=== PATIENT | male | born 1965 | race Caucasian/White ===

== ENCOUNTER 2017-01-28 12:04 | Observation (INO) | payer OTHER ==
[~2017-01-28] VITALS: Ht 182.9 cm; Wt 79.5 kg
--- NOTE | 2017-01-28 12:05 | ED.REPORT ---
HPI-Stroke / CVA Jan 28, 2017 ED Provider: Eliana Kumar MD A healthy 51 year old male presents to the ER via EMS referred from urgent care due to sudden onset, rapidly improving left arm weakness. Last known normal 11: 06 today. He states that he was at work when he became dizzy and almost lost consciousness, and noticed weakness in his left arm. Patient denies headache. He is an everyday smoker, drinker, and THC user, though he denies any illicit drug use. Nursing Notes Stated Complaint: LEFT SIDED WEAKNESS Nursing Notes Reviewed: Yes Allergies: Coded Allergies: No Known Allergies (Unverified , 01/28/17) No Active Prescriptions or Reported Meds General Time Seen by Provider: 12:03 Chief Complaint Weakness Arm left Hx Obtained From: Patient, EMS Arrived By: Ambulance Time last known well 11:06 today Sudden in Onset?: Yes Symptom Duration: Since onset Progression Since Onset: Unchanged Associated with: Denies: Headache Pertinent Negative: Pt denies other symptoms Similar Sx Previous: No Risk Factors )( TPA Administration/Criteria Stroke Thrombolytic Therapy : TPA Considered: Yes TPA Administered Intravenously: No, not indicated (rapidly improving symptoms, to asymptomatic) Relative Exclusion Crit: Rapidly improv stroke sym NIH Stroke Scale Level of Consciousness: Alert and responsive (0) Ask Month & Age: Both questions right (0) Open/Close Eyes/Hand Workforce Services Representative: Performs both tasks (0) Horizontal EO Movements: None (0) Visual Allen: No visual loss (0) Facial Palsy: Normal symmetry (0) Right Arm Motor Drift (10s): No drift 10 sec (0) Left Arm Motor Drift (10s): No drift 10 sec (0) Right Leg Motor Drift (5s): No drift 5 sec (0) Left Leg Motor Drift (5s): No drift 5 sec (0) Limb Ataxia FNF/Heel-Cote: No ataxia (0) Sensation (Arms/Legs/Face): No sensory loss (0) Language Aphasia: No aphasia, normal (0) Dysarthria: No dysarthria, normal (0) Extinction/Inattention: No exctinct/inattent (0) NIHSS Score: 0 Time NIHSS Performed: 12:09 Date NIHSS Performed: Jan 28, 2017 Past Medical History Past Medical History Healthy Past Surgical History Denies Smoking History Current Every Day Smoker Social History Alcohol Use: 1-3 per day Drug Use: THC (daily) Ambulatory Status Independent Review of Systems Constitutional: Denies: Chills, Fever Respiratory: Denies: Non-productive cough, Shortness of breath Cardiovascular: Denies: Chest pain GI: Denies: Nausea, Vomiting Skin: Denies Diaphoresis Neurologic: Reports: Dizziness, Focal weakness (Left Arm), Lightheaded, Denies: Headache, Syncope Complete sys rev & neg: except as marked. Physical Exam Initial evaluation at 12:01 on arrival. Initial Vital Signs Vital Signs (First) Date Time Temp Pulse Resp B/P Pulse Ox O2 Delivery O2 Flow Rate FiO2 01/28/17 12:06 36.6 80 15 131/89 98 Room Air Initial VS: Reviewed Abdomen / GI: Soft, Non-tender, No guarding, No rebound, No distention Extremities: Vascular intact, Neuro intact, No swelling, No tenderness Skin: Warm, Dry, No cyanosis General/Constitutional: Awake, Alert, Well developed, Well nourished Behavior: Positive: Anxious Reserved Head / Eyes: Atraumatic, Normocephalic Neck: Supple, Full range of motion, No swelling, Non-tender, No carotid bruit Respiratory / Chest: Breath sounds NL, Breath sounds = bilat, No respiratory distress, No rales, No rhonchi, No wheezing Cardiovascular: Heart rate NL, Regular rhythm, Heart sounds NL, No murmurs, Peripheral circulation NL Neurologic: Oriented X3, Speech NL, No sensory deficits, CN II - XII intact Mild Left arm weakness. Speech is fluent. Able to transfer from [facility] to [place] bed independently. Interpretation & Diagnostics Lab Results Interpretation Result Diagram: 01/28/17 1205 01/28/17 1205 Test 01/28/17 12:05 01/28/17 12:30 01/28/17 13:38 White Blood Count 10.6th/mm3 (3.8-10.1) Red Blood Count 4.65mil/mm3 (4.40-5.80) Hemoglobin 16.5g/dL (13.8-17.2) Hematocrit 45.3% (41.0-50.0) Mean Corpuscular Volume 97.4fL (81-100) Mean Corpuscular Hemoglobin 35.5pg (27.0-35.0) Mean Corpuscular Hemoglobin Concent 36.4% (32.0-37.0) Red Cell Distribution Width 13.1% (12.3-15.4) Platelet Count 212bil/L (150-400) Neutrophils (%) (Auto) 66.8% (40-74) Lymphocytes (%) (Auto) 22.6% (14-46) Monocytes (%) (Auto) 9.1% (4-12) Eosinophils (%) (Auto) 1.0% (0-5) Basophils (%) (Auto) 0.3% (0-3) Prothrombin Time 10.0sec (8.1-12.5) Prothromb Time International Ratio 0.94ratio Activated Partial Thromboplast Time 27.1sec (22.8-33.0) Sodium Level 138mEq/L (134-144) Potassium Level 4.0mEq/L (3.5-5.2) Chloride Level 101mEq/L (97-108) Carbon Dioxide Level 22mmol/L (18-29) Blood Urea Nitrogen 12mg/dL (6-24) Creatinine 0.80mg/dL (0.76-1.27) Estimat Glomerular Filtration Rate 107mL/min (>59) Glucose Level 107mg/dL (60-99) Calcium Level 9.4mg/dL (8.5-10.1) Total Bilirubin 0.5mg/dL (0.0-1.2) Aspartate Amino Transf (AST/SGOT) 31U/L (0-50) Alanine Aminotransferase (ALT/SGPT) 35U/L (0-44) Alkaline Phosphatase 50U/L (25-150) Total Protein 7.8g/dL (6.4-8.4) Albumin 4.6g/dL (3.4-5.0) Hold Purple Top Tube Received (Received) Hold Blue Top Tube Received (Received) Triglycerides Level 46mg/dL (0-149) Cholesterol Level 154mg/dL (100-199) LDL Cholesterol, Calculated 81.800mg/dL (0-99) VLDL Cholesterol 9.200mg/dL HDL Cholesterol 63mg/dL (>39) Cholesterol/HDL Ratio 2.44 (0.0-4.4) Hold Red Top Tube Received (Received) Hold Benedict Top Tube Received (Received) Urine Color Yellow (YELLOW) Urine Appearance Clear (CLEAR,HAZY) Urine pH 7.0 (5.0-8.0) Urine Specific [place] 1.010 (1.003-1.035) Urine Protein Negativemg/dL (NEG,TRACE) Urine Glucose (UA) Negativemg/dL (NEGATIVE) Urine Ketones Negativemg/dL (NEGATIVE) Urine Occult Blood Negative (NEGATIVE) Urine Nitrite Negative (NEGATIVE) Urine Bilirubin Negative (NEGATIVE) Urine Urobilinogen Normalmg/dL (NORMAL) Urine Leukocyte Esterase Negative (NEGATIVE) Urine RBC 0-2/hpf (0-2) Urine WBC 0-5/hpf (0-5) Urine Epithelial Cells Occasional/hpf (NONE-MOD) Urine Crystals None seen (NONE SEEN) Urine Bacteria None/hpf (NONE-FEW) Urine Hyaline Casts None/lpf (NONE) Urine Granular Casts None seen (NONE SEEN) Urine Waxy Casts None seen (NONE SEEN) Urine Red Blood Cell Casts None seen (NONE SEEN) Urine White Blood Cell Casts None seen (NONE SEEN) Urine Mucus None seen (None Seen) Urine Trichomonas None seen (NONE SEEN) Urine Yeast None (NONE SEEN) Urinalysis Comment None Urine Culture Reflexed Not indicated ECG Interpretation ECG Interpretation: Sinus rhythm, rate 72 LPFB Time: 12:45 Interpreted by: ED physician CT Head Interpretation IMPRESSION: 1. No acute intracranial abnormalities. 2. Mild mucosal thickening in ethmoid sinuses bilaterally. This study fulfills neurological imaging criteria for inclusion or exclusion of acute stroke therapies based on available published neurological guidelines. Dictated by: Sarah Spicer M.D. on 01/28/2017 at 12:14 Approved by: Sarah Spicer M.D. on 01/28/2017 at 12:15 Study: Head CT no contrast Interpretation / Wet Read by: Interpret - Radiologist Re-Eval/Medical Decision Source of Hx: Old records Re-Evaluation/Progress #1: Time of Eval: 12:16 Re-Evaluation/Progress Note: Left arm weakness now resolved. Re-Evaluation/Progress #2: Time of Eval: 14:03 Re-Evaluation/Progress Note: Discussed lab and radiology results, physical examination findings and need for admission. Patient is amenable to the plan. All other questions addressed. Consultation : Referral / Consult Name: Malou Moss MD Consulted With: Hospitalist Call Returned at: 13:38 Loan Funder: Agrees with eval, Agrees with plan, Accepts admit Counseled Regarding: Diagnosis, Lab results, Need for admission Patient Discharge & Departure Impression: Primary Impression: TIA (transient ischemic attack) Disposition: ADMITTED TO HOSPITAL Discharge Condition All VS Reviewed: Yes Condition: Stable Scribe Attestation Portions of this note were transcribed by Jordi Moeller. I, Dr. Kumar, personally performed the history, physical exam and medical decision-making; I reviewed and confirmed the accuracy of the information in the transcribed note. Signed by: Juan Hoyt, 01/28/2017 at 14:03 Eliana Kumar MD Jan 28, 2017 12:05 JORDI MOELLER Jan 28, 2017 12:16
[2017-01-28 12:06] VITALS: BP 131/89; PULSE 80; RESP 15; O2SAT 98
--- NOTE | 2017-01-28 12:17 | DRSVH ---
PROCEDURE: CT BRAIN (TPA) ([id number]) INDICATIONS: weakness TECHNIQUE: Noncontrast 4.5 mm thick angled axial sections acquired from the foramen magnum to the vertex, with c oronal reformats. COMPARISON: None. FINDINGS: Image quality: Excellent. CSF spaces: Basal cisterns are patent. No extra-axial fluid collections. The ventricles are symmet cris in size and shape. Brain: No intracranial bleeds or masses. There is cerebral volume loss for age, with resultant vent ricular and sulcal prominence. There are periventricular and deep white matter chronic small vessel ischemic changes. There is intracranial internal carotid artery atherosclerosis. Skull and face: Calvarium and visualized facial bones appear intact, without suspicious lesions. Sinuses: There is mild mucosal thickening in ethmoid sinuses bilaterally. Mastoids are clear. IMPRESSION: 1. No acute intracranial abnormalities. 2. Mild mucosal thickening in ethmoid sinuses bilaterally. This study fulfills neurological imaging criteria for inclusion or exclusion of acute stroke therapie s based on available published neurological guidelines. Dictated by: Sarah Spicer M.D. on 01/28/2017 at 12:14 Approved by: Sarah Spicer M.D. on 01/28/2017 at 12:15
[2017-01-28 12:40] LABS: BASOPHILS % (AUTO) 0.3 % (0-3); MONOCYTES % (AUTO) 9.1 % (4-12); Mean Corpuscular Hemoglobin 35.5 pg (27.0-35.0); Mean Corpuscular Volume 97.4 fL (81-100); NEUTROPHILS % (AUTO) 66.8 % (40-74); Platelet Count 212 bil/L (150-400)
[2017-01-28 12:46] LABS: INR 0.94 ratio
--- NOTE | 2017-01-28 12:58 | NUR ---
Evaluation completed. Please go to "Notes" then click on "Assessments and Notes" (bottom left corner of screen). Then select appropriate discipline tab on top of screen.
[2017-01-28 13:20] LABS: TROPONIN T < 0.010 ug/L (0.0-0.011)
[2017-01-28 13:52] VITALS: BP 119/85; PULSE 73; RESP 15; O2SAT 98
[2017-01-28] MEDS ORDERED: Ondansetron 2 mg/mL 2 mL Inj IV PRN (14:05)
[2017-01-28] MEDS ORDERED: hydrALAZINE 20 mg/mL Inj IVPUSH PRN (14:05)
[2017-01-28] MEDS ORDERED: Labetalol 5 mg/mL 4 mL Inj IVPUSH PRN (14:05)
--- NOTE | 2017-01-28 14:09 | PCM.HPMED ---
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 PEr ER, he had left arm weakness of sudden onset, and he went to urgent care where he was transferred to emergency room, by the time he returned from CT scan left-sided weakness resolved. Patient denies every having left sided weakness. He just indicates feeling dizziness only. pt was using new wax today. In the ER vital signs stable, left arm on exam noted. Review of Systems - none of the following - F/C/sick contact / wt change/ MARUCM / lightheaded / dizziness / sob / cough / cp / acid reflux / n/v/diarrhea / bleeding/bruising / leg swelling / change in voiding / yeast infections / rash ambulates FAMILY HX CVA [place] SOCIAL HX marijuana, smoker 1ppd, alcohol 2-6 servings per day, no withdrawal hx MEDICATIONS none Past Medical/Surgical HX chronic bilateral anterior thigh paresthesia -- feels wet GERD sciatica Allergies Coded Allergies: No Known Allergies (Unverified , 01/28/17) PMH Social History Hx Alcohol Use: Yes Alcoholic Drinks Per Day: 2 per week Hx Substance Use: Yes (marijuana nightly) Smoking Status: Current Every Day Smoker Exam Vital Signs Vital Sign - Last Date Time Temp Pulse Resp B/P Pulse Ox O2 Delivery O2 Flow Rate FiO2 01/28/17 13:52 73 15 119/85 98 Room Air 01/28/17 12:06 36.6 Lab and Diagnostics Labs Exam on admission on room air NAD A and O x 3 mood affect WNL NC/AT no icterus no injected eyes EOMI PERRL /no pharyngeal lesions/ no oral lesions / hearing intact Supple neck CTAB equal chest rise / no accessory muscle use / speaks in full sentences / no rrw RRR S1 S2 / no mrg / 2+ radial pulses Soft nt nd + BS no hepatosplenomegaly No edema no cyanosis no ecchymosis of lower extremities No rash / no jaundice DARDEN CNII-XII grossly intact symmetrical Strength grossly intact of bilateral upper and lower limbs symmetrical facies EKG 72SR no ST changes Trop neg LFTnormal Imaging PROCEDURE: CT BRAIN (TPA) ([id number]) INDICATIONS: weakness TECHNIQUE: Noncontrast 4.5 mm thick angled axial sections acquired from the foramen magnum to the vertex, with coronal reformats. COMPARISON: None. FINDINGS: Image quality: Excellent. CSF spaces: Basal cisterns are patent. No extra-axial fluid collections. The ventricles are symmetric in size and shape. Brain: No intracranial bleeds or masses. There is cerebral volume loss for age , with resultant ventricular and sulcal prominence. There are periventricular and deep white matter chronic small vessel ischemic changes. There is intracranial internal carotid artery atherosclerosis. Skull and face: Calvarium and visualized facial bones appear intact, without suspicious lesions. Sinuses: There is mild mucosal thickening in ethmoid sinuses bilaterally. Mastoids are clear. IMPRESSION: 1. No acute intracranial abnormalities. 2. Mild mucosal thickening in ethmoid sinuses bilaterally. This study fulfills neurological imaging criteria for inclusion or exclusion of acute stroke therapies based on available published neurological guidelines. Result Diagram: 01/28/17 1205 01/28/17 1205 Assessment & Plan Active issues and reason for admission TIA associated w/ left arm weakness and dizziness --pending MRI/echo/lipid/A1c/PT/OT, no PCP --lipitor, permissinve htn, asa Chronic issues known prior to admission, present on admission smoking/ etoh/ MJ --cessation encouraged, prn nicotine chronic bilateral anterior thigh paresthesia -- feels wet GERD sciatica Diet cardiac DVT prophylaxis lovenox Code full Disposition OBS status Assessment and plan were discussed with patient Malou Moss MD Jan 28, 2017 14:09
[2017-01-28 14:12] LABS: APPEARANCE,URINE CLEAR (CLEAR,HAZY); COLOR,URINE YELLOW (YELLOW); OCCULT BLOOD,URINE NEGATIVE (NEGATIVE)
[2017-01-28 14:13] LABS: UROBILINOGEN,URINE NORMAL (NORMAL)
--- NOTE | 2017-01-28 15:18 | NUR ---
Evaluation completed. Please go to "Notes" then click on "Assessments and Notes" (bottom left corner of screen). Then select appropriate discipline tab on top of screen.
[2017-01-28 17:00] VITALS: BP 137/90; PULSE 73; RESP 16; O2SAT 98
--- NOTE | 2017-01-28 17:12 | DRSVH ---
PROCEDURE: US BILATERAL DUPLEX DOPPLER IMAGING OF THE CAROTIDS ([id number]) INDICATIONS: tia TECHNIQUE: Color and pulse Doppler interrogation was performed of both carotid systems, with image documentation and velocity measurements. COMPARISON: None. FINDINGS: All stenosis calculations are based on NASCET criteria. Right side: Brachial blood pressure: 190/85 mm Hg. Common Carotid Artery(Distal) PSV: 71.20 cm/s Internal Carotid Artery PSV- Proximal: 49 cm/s Mid-lon.50 cm/s Distal: 99.30 cm/s EDV - Proximal: 20.10 cm/s Mid-lon cm/s Distal: 40.40 cm/s External Carotid Artery(Proximal) PSV: 56.70 cm/s ICA/CCA PSV ratio: 0.91 Fontanez scale imaging description: Mild plaquing Percent internal carotid artery stenosis: Less than 50%. Vertebral artery: Flow direction is antegrade. Left side: Brachial blood pressure: n.a., IV and the left arm Common Carotid Artery(Distal) PSV: 46.50 cm/s Internal Carotid Artery PSV - Proximal: 61.20 cm/s Mid-lon.40 cm/s Distal: 93.10 cm/s EDV - Proximal: 18 cm/s Mid-lon.60 cm/s Distal: 43.20 cm/s External Carotid Artery(Proximal) PSV: 58.40 cm/s ICA/CCA PSV ratio: 1.34 Fontanez scale imaging description: Minimal plaquing Percent internal carotid artery stenosis: Less than 50%. Vertebral artery: Flow direction is antegrade. IMPRESSION: 1. Less than 50% internal carotid artery stenosis bilaterally. 2. Antegrade vertebral artery flow bilaterally. Dictated by: Sarah Spicer M.D. on 01/28/2017 at 17:09 Approved by: Sarah Spicer M.D. on 01/28/2017 at 17:10
--- NOTE | 2017-01-28 18:21 | NUR ---
Admit note Patient arrived to floor from ED. Independent with mobility and transfers. S/L bilat AC. Here for R/O stroke/TIA
--- NOTE | 2017-01-28 20:30 | NUR ---
TIA/CVA Ed. Stroke information booklet given discussed smoking as contributing factor and s/sx to be aware of plan for Echo in Am Addendum: 01/29/17 at 0630 by LANA LIN RN Uneventful night order for MRI today
[2017-01-28 21:21] VITALS: BP 132/76; PULSE 77; RESP 18; O2SAT 98
[2017-01-29 01:39] VITALS: BP 119/66; PULSE 67; RESP 16; O2SAT 96
[2017-01-29 05:54] VITALS: PULSE 75
[2017-01-29 06:24] VITALS: BP 121/83; PULSE 70; RESP 18; O2SAT 98
[2017-01-29 09:34] LABS: Mean Corpuscular Volume 99.8 fL (81-100)
[2017-01-29 10:50] VITALS: PULSE 82
[2017-01-29 12:15] VITALS: BP 123/72; PULSE 80; RESP 16; O2SAT 98
--- NOTE | 2017-01-29 12:18 | DRSVH ---
PROCEDURE: MRI BRAIN WITHOUT CONTRAST ([id number]) INDICATIONS: DIZZINESS,TIA TECHNIQUE: Noncontrast axial T1 spin echo, axial T2 fast spin echo, sagittal and axial FLAIR, coronal T2 fast sp in echo, axial gradient echo, axial diffusion and ADC through the brain. COMPARISON: [facility], CT, BRAIN ([facility]), 01/28/2017, 12:10. FINDINGS: Image quality: There is slight motion artifact. CSF Spaces: Basal cisterns are patent. No extra-axial fluid collections. Ventricles are normal in size and shape. Brain: No intracranial hemorrhage, mass, or mass effect. Fontanez/white matter interface is preserved a . Brainstem appears normal. Diffusion-weighted images demonstrate no acute infarcts. Normal intrav ascular flow voids are present. Skull and face: Calvarium has normal marrow signal. Orbits appear normal. Sinuses: There is mild mucosal thickening in the maxillary and ethmoid sinuses. There is partial flu id opacification of the right mastoid air cells compatible with a fluid there is no mastoiditis. IMPRESSION: 1. No evidence of infarct or other acute intracranial abnormality. 2. Partial fluid opacification of the right mastoid air cells compatible with mastoiditis. 3. Mild sinus mucosal disease Dictated by: Rosalino Mendoza M.D. on 01/29/2017 at 12:17 Approved by: Rosalino Mendoza M.D. on 01/29/2017 at 12:17
[2017-01-29 15:29] VITALS: BP 127/85; PULSE 69; RESP 16; O2SAT 96
--- NOTE | 2017-01-29 17:49 | DRSVH ---
[facility] [address] [place] [address] Echocardiogram Report Name: MARISOL MARTINEZ Jair e: 01/29/2017 Height: 72 in Hospital Exam Location: [facility] Weight: 160 lb Gender: Male BSA: 1.9 m2 : 1965 Age: 51 yrs BP: 121/83 mmHg Reason For Study: TIA Ordering Physician: Performed By: Anna [facility] Interpretation Summary The left ventricle is normal in size, wall thickness, and systolic function without any focal wall motion abnormalities with the ejection fraction visually estimated to be 60-65%. Assessment of diastolic parameters indicates normal left ventricular diastolic function and normal filling pressures. The right ventricle is normal in size and function. The right ventricular systolic pressure is estimated at 26 mmHg assuming a right atrial pressure of 3 mm Hg. Both atria are normal in size. The interatrial septum is intact with no evidence for an atrial septal defect or interatrial shunt by Doppler or injection of contrast. There is no significant valvular heart disease. The echocardiogram is within normal limits. Procedure: A two-dimensional transthoracic echocardiogram with color flow and Doppler was performed. The study quality was technically adequate. There is no prior echocardiogram noted for this patient. A saline contrast injection was performed to assess for cardiac shunting. The patient was in normal sinus rhythm during the exam. Left Ventricle: The left ventricle is normal in size, wall thickness, and systolic function without any focal wall motion abnormalities. The ejection fraction is estimated to be 60-65%. Assessment of diastolic parameters indicates normal left ventricular diastolic function and normal filling pressures. Right Ventricle: The right ventricle is normal in size and function. Atria: Both atria are normal in size. The interatrial septum is intact with no evidence for an atrial septal defect. There is no Doppler evidence for an interatrial shunt. Injection of contrast documented no interatrial shunt. Mitral Valve: The mitral valve is normal in structure and function. There is trace mitral regurgitation. Aortic Valve: The aortic valve is trileaflet. The aortic valve is slightly calcified. The aortic valve opens well. No aortic regurgitation is present. Tricuspid Valve: The tricuspid valve is normal in structure and function. There is trace tricuspid regurgitation. The right ventricular systolic pressure is estimated at 26 mmHg assuming a right atrial pressure of 3 mm Hg. Pulmonic Valve: The pulmonic valve is not well visualized. There is no significant valvular heart disease. Great Vessels: The aortic root is normal size. The ascending aorta could not be visualized. The aortic arch is normal in size. The IVC is of normal diameter and collapses greater than 50% with a sniff. This suggests a low right atrial pressure of 3 mm Hg. Pericardium/ Pleura There is no pericardial effusion. There is no pleural effusion. MMode/2D Measurements & Calculations LVIDd: 4.5 cm RA long axis LVOT diam: 2.4 cm LVIDs: 2.8 cm LA A2 area: 20.7 cm Ao root diam FS: 38.4 % LA A4 area: 15.8 cm RA area IVSd: 0.96 cm LA length (vol) Ao Arch Diam (Prox LVPWd: 0.80 cm : 17.1 cm Trans): 2.7 cm LA vol: 61.7 ml RA vol LA vol index : 46.9 ml RA : 24.2 mm2 IVC diam: 2.0 cm LV pederson. diameter/BSA LV sys. diameter/BSA RVD1 (basal) RVD2 (mid): 2.9 cm (cm/m^2): 2.3 (cm/m^2): 1.4 Doppler Measurements & Calculations Ao V2 max MV E max cortes MV E/A: 1.6 TR max cortes : 137.4 cm/sec : 78.3 cm/sec Med Peak E' Cortes : 238.4 cm/sec Ao max PG MV A max cortes TR max PG : 7.6 mmHg : 49.8 cm/sec E/E' med: 10.0 : 22.7 mmHg Ao mean PG MV P1/2t: 59.6 msec MV A dur: 0.12 secPA V2 max : 72.9 cm/sec LVOT Max Cortes PA mean PG : 105.8 cm/sec PA Accel Time NIURKA(I,D): 2.4 cm : 0.12 sec sev ratio MV dec time MV P1/2t max cortes Ao V2 mean LV V1 max PG : 0.20 sec : 93.8 cm/sec MVA(P1/2t): 3.7 cm2 Ao V2 VTI: 33.2 cmLV V1 VTI NIURKA(V,D): 3.4 cm2 : 18.6 cm PA V2 mean NIURKA indexed to BSA : 56.3 cm/sec (cm^2/m^2): 1.3 Reading Physician:05:49 PM
[2017-01-29] MEDS ORDERED: AMOX-366 PO (18:04)
--- NOTE | 2017-01-29 18:08 | PCM.DIMED ---
Discharge Instructions Date of Service Jan 29, 2017 Dates of Hospitalization Jan 28, 2017 at 14:13 Discharge Diagnosis Discharge Diagnosis TIA Mastoiditis Medication Instructions Based on the CT scan it appears he may have mastoiditis and you have been prescribed Augmentin to take for the next 5 days. Diet No restrictions Activity No restrictions Call your provider Fever or Chills, Shortness of breath, Bleeding, Chest pain, Vomitting, Weakness (unilateral) Patient Instructions Please call to make an appointment with your primary care physician within the next week. He will need to be seen as a follow-up as you have been admitted to the hospital. Please call and follow-up with ENT in regards to the changes in her sinuses and with the right mastoid process on CT scan Follow-up with PCP in: 1 week (please call to schedule an appointment with your PCP) Follow-up in: 2 weeks (please discuss with your PCP in regards to a referral for an ear nose and throat (ENT) specialist) Angelika Brewster DO Jan 29, 2017 18:08
--- NOTE | 2017-01-29 18:13 | PCM.DC.MED ---
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 [facility], he had left arm weakness of sudden onset, and he went to urgent care where he was transferred to emergency room, by the time he returned from CT scan left-sided weakness resolved. Patient denies every having left sided weakness. He just indicates feeling dizziness only. pt was using new wax today. 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 [facility], he had left arm weakness of sudden onset, and he went to urgent care where he was transferred to emergency room, by the time he returned from CT scan left-sided weakness resolved. Patient denies every having left sided weakness. He just indicates feeling dizziness only. pt was using new wax today. Patient was admitted for rule out TIA symptoms. Patient had an MRI which was negative for acute intracranial processes however was positive for mastoiditis. Patient states that he has not had any recent cough or cold symptoms however with the patient's dizziness to mastoiditis could have caused this. Patient will be treated for this with Augmentin 875 mg twice a day for the next 5 days. Patient has been instructed to follow-up with his primary care physician in regards to this as well as an ENT specialist. The patient states that it has been a while since he has seen his PCP however he would prefer to call and make an appointment with his PCP on his own. Patient also had an echo which was normal and EF of 60-65%. Patient's lipids and hemoglobin A1c were all within normal range. Patient is being discharged home in stable condition l Please see below for hospital course while admitted: TIA associated w/ left arm weakness and dizziness --pending MRI/echo/lipid/A1c/PT/OT, no PCP --lipitor, permissinve htn, asa Chronic issues known prior to admission, present on admission smoking/ etoh/ MJ --cessation encouraged, prn nicotine chronic bilateral anterior thigh paresthesia -- feels wet GERD sciatica Diet cardiac DVT prophylaxis lovenox Code full Disposition OBS status Assessment and plan were discussed with patient Exam Vital Signs (Last) Date Time Temp Pulse Resp B/P Pulse Ox O2 Delivery O2 Flow Rate FiO2 01/29/17 15:29 37.1 69 16 127/85 96 Room Air Exam Physical Exam: GEN: Patient was awake, alert, responding appropriately to questions HEENT: Pupils equal round and reactive to light, extraocular eye muscles intact , Neck soft supple, trachea midline, nomocephalic/atraumatic CV: +S1/S2, regular rate and rhythm, no murmurs auscultated Respiratory: CTAB, no wheezes, rales, rhonchi GI: +bowel sounds x4, soft, compressible, nontender to palpation EXT: no clubbing, cyanosis, edema Neuro: Cranial nerves II-XII grossly intact, negative [id number] test, appropriate nose to finger test, 5/5 upper and lower extremity strength testing , 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 Psych: mood and affect were appropriate Test 01/28/17 12:05 01/28/17 12:30 01/28/17 13:38 01/28/17 14:15 Neutrophils (%) (Auto) 66.8% (40-74) Lymphocytes (%) (Auto) 22.6% (14-46) Monocytes (%) (Auto) 9.1% (4-12) Eosinophils (%) (Auto) 1.0% (0-5) Basophils (%) (Auto) 0.3% (0-3) Prothrombin Time 10.0sec (8.1-12.5) Prothromb Time International Ratio 0.94ratio Activated Partial Thromboplast Time 27.1sec (22.8-33.0) Hold Purple Top Tube Received (Received) Hold Blue Top Tube Received (Received) Hemoglobin A1c 5.6% (4.8-5.6) Triglycerides Level 46mg/dL (0-149) Cholesterol Level 154mg/dL (100-199) LDL Cholesterol, Calculated 81.800mg/dL (0-99) VLDL Cholesterol 9.200mg/dL HDL Cholesterol 63mg/dL (>39) Cholesterol/HDL Ratio 2.44 (0.0-4.4) Hold Red Top Tube Received (Received) Hold [place] Top Tube Received (Received) Urine Color Yellow (YELLOW) Urine Appearance Clear (CLEAR,HAZY) Urine pH 7.0 (5.0-8.0) Urine Specific [place] 1.010 (1.003-1.035) Urine Protein Negativemg/dL (NEG,TRACE) Urine Glucose (UA) Negativemg/dL (NEGATIVE) Urine Ketones Negativemg/dL (NEGATIVE) Urine Occult Blood Negative (NEGATIVE) Urine Nitrite Negative (NEGATIVE) Urine Bilirubin Negative (NEGATIVE) Urine Urobilinogen Normalmg/dL (NORMAL) Urine Leukocyte Esterase Negative (NEGATIVE) Urine RBC 0-2/hpf (0-2) Urine WBC 0-5/hpf (0-5) Urine Epithelial Cells Occasional/hpf (NONE-MOD) Urine Crystals None seen (NONE SEEN) Urine Bacteria None/hpf (NONE-FEW) Urine Hyaline Casts None/lpf (NONE) Urine Granular Casts None seen (NONE SEEN) Urine Waxy Casts None seen (NONE SEEN) Urine Red Blood Cell Casts None seen (NONE SEEN) Urine White Blood Cell Casts None seen (NONE SEEN) Urine Mucus None seen (None Seen) Urine Trichomonas None seen (NONE SEEN) Urine Yeast None (NONE SEEN) Urinalysis Comment None Urine Culture Reflexed Not indicated Troponin T < 0.010ug/L (0.0-0.011) Test 01/29/17 08:25 White Blood Count 9.5th/mm3 (3.8-10.1) Red Blood Count 4.73mil/mm3 (4.40-5.80) Hemoglobin 16.1g/dL (13.8-17.2) Hematocrit 47.2% (41.0-50.0) Mean Corpuscular Volume 99.8fL (81-100) Mean Corpuscular Hemoglobin 34.0pg (27.0-35.0) Mean Corpuscular Hemoglobin Concent 34.1% (32.0-37.0) Red Cell Distribution Width 13.1% (12.3-15.4) Platelet Count 206bil/L (150-400) Sodium Level 141mEq/L (134-144) Potassium Level 4.4mEq/L (3.5-5.2) Chloride Level 106mEq/L (97-108) Carbon Dioxide Level 22mmol/L (18-29) Blood Urea Nitrogen 10mg/dL (6-24) Creatinine 0.77mg/dL (0.76-1.27) Estimat Glomerular Filtration Rate 112mL/min (>59) Glucose Level 117mg/dL (60-99) Calcium Level 8.9mg/dL (8.5-10.1) Total Bilirubin 0.7mg/dL (0.0-1.2) Aspartate Amino Transf (AST/SGOT) 18U/L (0-50) Alanine Aminotransferase (ALT/SGPT) 28U/L (0-44) Alkaline Phosphatase 45U/L (25-150) Total Protein 6.5g/dL (6.4-8.4) Albumin 4.1g/dL (3.4-5.0) Discharge Medications Discharge Medications Amoxicillin/Clav K 875-125 mg (Augmentin 875-125 mg) 1 Each Tablet 1 TABLET PO BID Prescribed by: LETA BRWESTER DO Additional med instructions Based on the CT scan it appears he may have mastoiditis and you have been prescribed Augmentin to take for the next 5 days. Followup Plan Discharge Diet: No restrictions Discharge Activity: No restrictions Patient Instructions Please call to make an appointment with your primary care physician within the next week. He will need to be seen as a follow-up as you have been admitted to the hospital. Please call and follow-up with ENT in regards to the changes in her sinuses and with the right mastoid process on CT scan Follow-up with PCP in: 1 week (please call to schedule an appointment with your PCP) Follow-up in: 2 weeks (please discuss with your PCP in regards to a referral for an ear nose and throat (ENT) specialist) Time spent Greater than 35 minutes Leta Brewster DO Jan 29, 2017 18:13
--- NOTE | 2017-01-29 18:51 | NUR ---
Discharge Patient ambulated off floor at 1900 to d/c home. Declined wheelchair, UA walked pt out. All d/c information discussed with patient including medications and follow up appointments. IV'sx2 d/c'd intact. All belongings left with patient.
== END 2017-01-29 19:02 | disposition home or self-care (01) ==
LOC: SED 12:04 → MOC 14:13
PROVIDERS: ADMIT Urology; ATTEND Urology
DX: G45.9 Transient cerebral ischemic attack, unspecified (principal); H70.91 Unspecified mastoiditis, right ear; R42 Dizziness and giddiness; K21.9 Gastro-esophageal reflux disease without esophagitis; M54.30 Sciatica, unspecified side; F17.210 Nicotine dependence, cigarettes, uncomplicated; F12.10 Cannabis abuse, uncomplicated; F10.10 Alcohol abuse, uncomplicated
CPT/HCPCS: 36415; 70450; 70551; 80053; 80061; 81000; 82948; 83036; 84484; 85025; 85027; 85610; 85730; 92610; 93005; 93880; 97161; 99285; C8929; G0378; J1650